=== PATIENT | female | born 1930 | race Caucasian/White ===

== ENCOUNTER 2018-02-27 20:13 | Emergency (ER) | payer OTHER ==
[~2018-02-27] VITALS: Ht 162.6 cm; Wt 72.1 kg
[~2018-02-27 20:13] MED LIST: ANUHCC TOP; ATENOLOL50 MG PO; CALCIUM D PO; CAP12.5 PO; CAPOTEN12.5 MG PO; COL100 PO; CRESTOR PO; CRESTOR5 M1 PO; D3-50001 TAB PO; FISH OIL CONC1000 MG PO; FISH OIL PO; FLA500 PO; FLAXSEED PO; FUROSEMIDE20 MG PO; GLU500 PO; GLU850 PO; IMDUR30 MG PO; ISO10 PO; K10 PO; KCL20L; KLOR-CON M2020 MEQ PO; KLOR-CON20 MEQ PO; L20 PO; LAC PO; LEVAQUIN750 MG PO; LEXAPRO PO; LEXAPRO10 MG PO; METFORMIN850 M1 PO; MULTI-VIT; PRI20 PO; STROVITE ONE1 TAB PO; TEN50 PO; TYLENOL ARTHRITIS PO; TYLENOL EXTRA500 M2 PO; XARELTO PO; XARELTO10 M1 PO; ZOC20 PO; ZOFI IV; [UNRECOGNIZED DRUG - OTHER] PO
[2018-02-27 20:20] VITALS: Ht 162.6 cm; Wt 72.1 kg
[2018-02-27 20:57] LABS: BASOPHIL % 0.6 % (0-2); PLATELET COUNT 152 x10^3mcL (130-400)
[2018-02-27 21:01] LABS: CALCIUM 9.6 mg/dL (8.5-10.1); CARBON DIOXIDE 30.5 mmol/L (21-32); CHLORIDE SERUM 102 mmol/L (98-107); CREATININE SERUM 0.9 mg/dL (0.6-1.0); GLUCOSE SERUM 103 mg/dL (74-106); POTASSIUM SERUM 4.3 mmol/L (3.5-5.1); SODIUM SERUM 141 mmol/L (136-145)
[2018-02-27 21:06] LABS: ALBUMIN 3.6 g/dL (3.4-5.0); ALKALINE PHOSPHATASE 82 U/L (46-116); ALT/SGPT 19 U/L (14-59); AST/SGOT 14 U/L (15-37); BILIRUBIN TOTAL 0.4 mg/dL (0.20-1.00); TOTAL PROTEIN, SERUM 7.6 g/dL (6.4-8.2)
[2018-02-27 22:10] LABS: UA SPECIFIC GRAVITY <=1.005 (1.005-1.035); microscopic required? YES; urine erythrocyte NEGATIVE (NEGATIVE)
[2018-02-28 00:13] VITALS: BP 156/102
== END 2018-02-28 00:13 | disposition home or self-care (01) ==
LOC: ED 20:13
PROVIDERS: Emergency Medicine
DX: S80.12XA Contusion of left lower leg, initial encounter (principal); S80.11XA Contusion of right lower leg, initial encounter; N39.0 Urinary tract infection, site not specified; E86.0 Dehydration; Z88.6 Allergy status to analgesic agent; W01.0XXA Fall on same level from slipping, tripping and stumbling without subsequent striking against object, initial encounter; Y93.89 Activity, other specified; Y92.89 Other specified places as the place of occurrence of the external cause; Y99.8 Other external cause status
CPT/HCPCS: 83880; J0696; J1885